=== PATIENT | female | born 1980 | race African-American/Black ===

== ENCOUNTER 2017-02-04 08:36 | Emergency (ER) | payer OTHER ==
[~2017-02-04] VITALS: Ht 165.1 cm; Wt 86.2 kg
--- NOTE | 2017-02-04 08:47 | NUR ---
BIB TRIAGE NURSE TO BEDSIDE. PT IS A 36 Y/O FEMALE. AMBULATORY WITH SLOW BUT STEADY GAIT. NAD NOTED. VSS. SPEAKING IN FULL SENTENCES. C/O LEFT FOOT PAIN S/P INJURY ON 02/01. PT IS WEARING PROTECTIVE SURGICAL BOOTS. PER PT SHE WAS SEEN IN ANOTHER FACILITY. NOT SURE IF XRAY WAS TAKEN. DENIES ANY PAST MEDICAL HX. WCTM PT AT THIS TIME. WAITING FOR FURTHER PLAN OF CARE
--- NOTE | 2017-02-04 08:53 | NUR ---
CONSENT OBTAINED FOR SCREEN FOR PERFORMING X-RAYS/CT/NM/MRI
--- NOTE | 2017-02-04 09:30 | NUR ---
Patient discharged to home in stable conditon. Written and verbal after care instructions given. Patient verbalizes understanding of instructions. No further questions or concerns noted prior on leaving the ED.
[2017-02-04 09:31] VITALS: BP 128/79
== END 2017-02-04 09:38 | disposition home or self-care (01) ==
LOC: ER 08:36
DX: S93.602A Unspecified sprain of left foot, initial encounter (principal); X58.XXXA Exposure to other specified factors, initial encounter; Y93.89 Activity, other specified; Y99.8 Other external cause status; Y92.89 Other specified places as the place of occurrence of the external cause
CPT/HCPCS: 73630; 99284; A4663

== ENCOUNTER 2017-02-12 17:16 | Emergency (ER) | payer OTHER ==
[~2017-02-12] VITALS: Ht 165.1 cm; Wt 81.6 kg
[2017-02-12 18:43] LABS: *BILIRUBIN,URIN NEGATIVE (NEGATIVE); *BLOOD, URINE 2+ (NEGATIVE); *CLARITY,URINE CLEAR (CLEAR); *COLOR,URINE YELLOW (YELLOW); *KETONES,URINE NEGATIVE (NEGATIVE); *PROTEIN,URINE NEGATIVE (NEGATIVE); *URINE HCG, QUAL NEGATIVE (NEGATIVE); *UROBILINOGEN,URINE 0.2 E.U./dl (NORMAL); LEUKOCYTE ESTERASE ,URINE NEGATIVE (NEGATIVE); NITRITE, URINE NEGATIVE (NEGATIVE); UGLUCOSE NEGATIVE (NEGATIVE)
[2017-02-12 18:49] LABS: BACTERIA,URINE NONE SEEN /HPF (NONE SEEN); SQUAMOUS EPITHELIAL CELL,UR FEW /HPF (NONE SEEN); WBC,URINE 0-3 /HPF (0-3)
[2017-02-12 19:00] LABS: BASOPHILS # (AUTO) 0.1 K/uL (0.0-8.0); BASOPHILS % (AUTO) 0.5 % (0.0-2.0); EOSINOPHILS # (AUTO) 0.1 K/uL (0.0-0.7); EOSINOPHILS % (AUTO) 1.2 % (0.0-7.0); HEMATOCRIT 35.3 % (37-47); HEMOGLOBIN 11.5 G/DL (12.0-16.0); LYMPHOCYTES # (AUTO) 2.7 K/UL (0.8-4.8); LYMPHOCYTES % (AUTO) 25.6 % (20.5-51.5); MEAN CORPUSCULAR HEMOGLOBIN 29.2 UUG (27.0-31.0); MEAN CORPUSCULAR HGB CONC 33 g/dL (32.0-37.0); MEAN CORPUSCULAR VOLUME 89.9 FL (81.0-99.0); MONOCYTES # (AUTO) 0.5 K/UL (0.1-1.30); MONOCYTES % (AUTO) 4.8 % (0.0-11.0); NEUTROPHILS # (AUTO) 7.1 K/UL (1.8-8.9); NEUTROPHILS % (AUTO) 67.9 % (38.5-71.5); PLATELET COUNT (AUTO) 368 K/UL (150-450); RED BLOOD CELL COUNT(AUTO) 3.93 MIL/UL (4.2-5.4); WHITE BLOOD COUNT (AUTO) 10.5 K/UL (4.0-11.2)
--- NOTE | 2017-02-12 19:07 | NUR ---
Received report from BUZZ Skinner. Assumed care of pt at this time.
--- NOTE | 2017-02-12 19:16 | NUR ---
Pt resting in a position of comfort for self. Resp even and unlabored. No complaints at this time. U/S at bedside.
[2017-02-12 19:26] LABS: BILIRUBIN,DIRECT 0.1 mg/dL (0.0-0.2); BILIRUBIN,TOTAL 0.3 mg/dL (0.2-1.0)
--- NOTE | 2017-02-12 20:47 | NUR ---
Pt stable for discharge per MD. Pt given ACI. Pt verbalized understanding of dc instructions. Pt ambulated out of er with steady gait and ride home.
[2017-02-12 20:48] VITALS: BP 135/75
== END 2017-02-12 20:50 | disposition home or self-care (01) ==
LOC: ER 17:16
DX: R07.89 Other chest pain (principal)
CPT/HCPCS: 36415; 70030-TC; 71010; 72125; 84703; 85025; 85730; 93005; A4663

== ENCOUNTER 2017-06-11 01:19 | Emergency (ER) | payer OTHER ==
[~2017-06-11] VITALS: Ht 165.1 cm; Wt 86.2 kg
--- NOTE | 2017-06-11 02:00 | NUR ---
Pt ambulated to room with steady gait. Pt c/o intermittent mid sternal chest pressure, worse tonight. Pt sts when she has the chest pressure its difficult to take a breath. Sts she breaths shallow until it passes. Pt changed into gown, ekg obtained, pt placed on monitor- NSR. Pt seen by Dr. Cedeño, awaiting orders.
[2017-06-11 02:39] LABS: CREATININE 0.9 mg/dL (0.6-1.3); POTASSIUM 3.4 mmol/L (3.5-5.1)
[2017-06-11 02:41] LABS: BASOPHILS # (AUTO) 0.3 K/uL (0.0-8.0); BASOPHILS % (AUTO) 2.4 % (0.0-2.0); EOSINOPHILS # (AUTO) 0.1 K/uL (0.0-0.7); HEMATOCRIT 33.2 % (37-47); HEMOGLOBIN 10.8 G/DL (12.0-16.0); MEAN CORPUSCULAR HEMOGLOBIN 28.7 UUG (27.0-31.0); MEAN CORPUSCULAR HGB CONC 33 g/dL (32.0-37.0); MEAN CORPUSCULAR VOLUME 88.4 FL (81.0-99.0); MONOCYTES # (AUTO) 0.7 K/UL (0.1-1.30); MONOCYTES % (AUTO) 6.1 % (0.0-11.0); NEUTROPHILS % (AUTO) 65.5 % (38.5-71.5); PLATELET COUNT (AUTO) 386 K/UL (150-450); RED BLOOD CELL COUNT(AUTO) 3.76 MIL/UL (4.2-5.4); WHITE BLOOD COUNT (AUTO) 12.1 K/UL (4.0-11.2)
[2017-06-11 03:04] LABS: *URINE HCG, QUAL NEGATIVE (NEGATIVE)
[2017-06-11] MEDS ORDERED: POTASSIUM CHLORIDE 10 MEQ CAPSULE.SA PO ONE (03:30)
[2017-06-11] MEDS ORDERED: POTASSIUM CHLORIDE 10 MEQ CAPSULE.SA ONE (03:45)
--- NOTE | 2017-06-11 03:45 | NUR ---
Pt stable for discharge per Dr. Cedeño. IV dc'd, catheter intact. Drsg applied. No problems noted to site. Pt given ACI. Pt verbalized understanding of dc instructions. Pt ambulated out of er with steady gait.
[2017-06-11 04:21] VITALS: BP 143/87
[2017-06-11 04:41] LABS: BAND % (MANUAL) 5 % (0-10); BASOPHILS % (MANUAL) 1 % (0-2); LYMPHOCYTES % (MANUAL) 31 % (20-40); MONOCYTES % (MANUAL) 1 % (2-10); NEUTROPHILS % (MANUAL) 62 % (42-75)
== END 2017-06-11 03:45 | disposition home or self-care (01) ==
LOC: ER 01:23
DX: R07.9 Chest pain, unspecified (principal); E87.6 Hypokalemia; D64.9 Anemia, unspecified
CPT/HCPCS: 36415; 71010; 80048; 84484; 84703; 85025; 93005; 99285; A4663; 70030-TC

== ENCOUNTER 2017-06-26 16:11 | Emergency (ER) | payer OTHER ==
[~2017-06-26] VITALS: Ht 165.1 cm; Wt 83.9 kg
--- NOTE | 2017-06-26 16:33 | NUR ---
Dr sanchez at the bedside for eval and exam.
[2017-06-26] MEDS ORDERED: KETOROLAC TROMETHAMINE 60 MG INJ IM ONE ×2 (16:45→16:53)
[2017-06-26 17:15] LABS: *BILIRUBIN,URIN NEGATIVE (NEGATIVE); *BLOOD, URINE 2+ (NEGATIVE); *COLOR,URINE YELLOW (YELLOW); *KETONES,URINE NEGATIVE (NEGATIVE); *PROTEIN,URINE NEGATIVE (NEGATIVE); *UROBILINOGEN,URINE 0.2 E.U./dl (NORMAL); LEUKOCYTE ESTERASE ,URINE NEGATIVE (NEGATIVE); NITRITE, URINE NEGATIVE (NEGATIVE); UGLUCOSE NEGATIVE (NEGATIVE)
[2017-06-26 17:16] LABS: *URINE HCG, QUAL NEGATIVE (NEGATIVE)
[2017-06-26 17:21] LABS: *CLARITY,URINE SLIGHTLY HAZY (CLEAR)
[2017-06-26 17:26] LABS: RBC,URINE 50-80 /HPF (0-3); SQUAMOUS EPITHELIAL CELL,UR MODERATE /HPF (NONE SEEN); WBC,URINE 0-3 /HPF (0-3)
[2017-06-26 17:27] LABS: MUCUS,URINE MANY /LPF (0-FEW)
--- NOTE | 2017-06-26 17:30 | NUR ---
Pt out of Er for CT.
--- NOTE | 2017-06-26 17:54 | NUR ---
Pt states back pain is gone. Resting in bed.
[2017-06-26 18:08] VITALS: BP 115/78
== END 2017-06-26 18:09 | disposition home or self-care (01) ==
LOC: ER 16:13
DX: M54.9 Dorsalgia, unspecified (principal); R10.9 Unspecified abdominal pain
CPT/HCPCS: 74176; 81001; 84703; 96372; 99285; A4663; J1885

== ENCOUNTER 2017-10-04 22:30 | Emergency (ER) | payer OTHER ==
--- NOTE | 2017-10-04 23:00 | NUR ---
Per registration pt left without being triaged.
== END 2017-10-04 23:00 | disposition left against medical advice (07) ==
LOC: ER 22:30
DX: Z53.21 Procedure and treatment not carried out due to patient leaving prior to being seen by health care provider (principal)

== ENCOUNTER 2017-10-05 14:15 | Emergency (ER) | payer OTHER ==
[~2017-10-05] VITALS: Ht 165.1 cm; Wt 86.2 kg
--- NOTE | 2017-10-05 15:01 | NUR ---
PATIENT WAS SEEN AND EXAMIEND BY DR CORTES IN ROOM 02A.
[2017-10-05 15:11] LABS: *URINE HCG, QUAL NEGATIVE (NEGATIVE)
--- NOTE | 2017-10-05 15:45 | NUR ---
Patient discharged to home in stable conditon. Written and verbal after care instructions given. Patient verbalizes understanding of instructions.pt walks in steady gait, no sign of distress.
== END 2017-10-05 15:46 | disposition home or self-care (01) ==
LOC: ER 14:15
DX: J06.9 Acute upper respiratory infection, unspecified (principal)
CPT/HCPCS: 71045; 84703; A4663